=== PATIENT | male | born 2000 | race African-American/Black ===

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

== ENCOUNTER 2018-01-05 13:35 | Emergency (ER) | payer OTHER ==
[2018-01-05 15:11] LABS: KETONE, URINE AUTO RFX NEGATIVE (NEGATIVE); LEUKOCYTE ESTERASE UR AUTO RFX NEGATIVE (NEGATIVE); MUCUS, URINE RFX SMALL (NEGATIVE); NITRITE, URINE AUTO RFX NEGATIVE (NEGATIVE); RBC, URINE AUTO RFX 1 /HPF (0-3); SPECIFIC GRAVITY UR AUTO RFX 1.024 (1.002-1.035); SQUAM EPITHELIAL CELL UR AURFX 0 /HPF (0-6); WBC, URINE AUTO RFX 0 /HPF (0-3)
[2018-01-05] MEDS: NS 1,000 ML IV (15:29)
[2018-01-05] MEDS: MORPHINE 2 MG/ML 1ML SYRINGE (J2270) IV (15:29)
[2018-01-05] MEDS: ONDANSETRON 4MG/2ML VIAL (J2405) IV (15:29)
[2018-01-05 15:42] LABS: BASO % 0.5 % (0.0-1.0); EOS # 0.1 10^3/uL (0.0-0.50); EOS % 0.8 % (0.0-3.0); HEMATOCRIT 39.4 % (42.0-52.0); HEMOGLOBIN 13.7 g/dl (13.5-17.5); IMMATURE GRANULOCYTE % 0.1 % (0-3.0); LYMPH # 2.2 10^3/uL (1.5-6.5); LYMPH % 27.6 % (24.0-44.0); MEAN CORPUSCULAR HEMOGLOBIN 33.5 pg (27.0-33.0); MEAN CORPUSCULAR HGB CONC 34.8 g/dl (32.0-36.5); MEAN CORPUSCULAR VOLUME 96.3 fl (80.0-96.0); MONO # 0.6 10^3/uL (0.0-0.8); PLATELET COUNT, AUTOMATED 265 10^3/uL (150-450); RED BLOOD COUNT 4.09 10^6/uL (4.30-6.10); RED CELL DISTRIBUTION WIDTH 12.5 % (11.5-14.5); WHITE BLOOD COUNT 7.8 10^3/uL (4.0-10.0)
[2018-01-05 15:52] LABS: INR 1.12; PROTHROMBIN TIME 14.6 SECONDS (12.1-14.4)
[2018-01-05 16:00] LABS: ANION GAP 6 MEQ/L (8-16); BLOOD UREA NITROGEN 18 MG/DL (7-18); CALCIUM LEVEL 8.8 MG/DL (8.5-10.1); CARBON DIOXIDE LEVEL 28 MEQ/L (21-32); CHLORIDE LEVEL 108 MEQ/L (98-107); GLUCOSE, FASTING 87 MG/DL (70-100); POTASSIUM SERUM 3.9 MEQ/L (3.5-5.1); SODIUM LEVEL 142 MEQ/L (136-145)
[2018-01-05] MEDS: ACETAMINOPHEN 325 MG TAB PO (17:04)
[2018-01-05] MEDS: traMADol 50 MG TAB PO (17:04)
== END 2018-01-05 17:05 | disposition home or self-care (01) ==
LOC: M ED 13:35
DX: R10.9 Unspecified abdominal pain (principal)
CPT/HCPCS: J2405

== ENCOUNTER 2018-05-27 23:01 | Emergency (ER) | payer OTHER ==
[2018-05-27 23:25] LABS: KETONE, URINE AUTO RFX NEGATIVE (NEGATIVE); LEUKOCYTE ESTERASE UR AUTO RFX NEGATIVE (NEGATIVE); MUCUS, URINE RFX SMALL (NEGATIVE); NITRITE, URINE AUTO RFX NEGATIVE (NEGATIVE); RBC, URINE AUTO RFX 1 /HPF (0-3); SPECIFIC GRAVITY UR AUTO RFX 1.029 (1.002-1.035); SQUAM EPITHELIAL CELL UR AURFX 0 /HPF (0-6); WBC, URINE AUTO RFX 0 /HPF (0-3)
== END 2018-05-27 23:26 | disposition left against medical advice (07) ==
LOC: M ED 23:01
DX: Z53.29 Procedure and treatment not carried out because of patient's decision for other reasons (principal)

== ENCOUNTER 2018-07-10 12:14 | Emergency (ER) | payer OTHER ==
[~2018-07-10] VITALS: Ht 182.9 cm; Wt 77.3 kg
[~2018-07-10 12:14] MED LIST changes: +ACET-683 PO; -ONDANSETRON 4 MG ORAL DISINTEGRATING TAB (Q0162 PER 1MG) As Ordered; +OXYC1TAB23 PO; +PROM50TA4 PO; +ZOFR4TAB16 PO
[2018-07-10] MEDS ORDERED: ONDANSETRON 4MG/2ML VIAL (J2405) IV ONE (12:30)
[2018-07-10] MEDS: MORPHINE 4 MG/ML 1ML VIAL/SYRINGE (J2270) IV PRN ×2 (12:44→13:45)
[2018-07-10 12:53] LABS: BASO % 0.2 % (0.0-1.0); EOS % 0.1 % (0.0-3.0); HEMATOCRIT 39.2 % (42.0-52.0); HEMOGLOBIN 13.9 g/dl (13.5-17.5); LYMPH # 1.1 10^3/uL (1.5-6.5); LYMPH % 13.5 % (24.0-44.0); MEAN CORPUSCULAR HEMOGLOBIN 32.7 pg (27.0-33.0); MEAN CORPUSCULAR HGB CONC 35.5 g/dl (32.0-36.5); MEAN CORPUSCULAR VOLUME 92.2 fl (80.0-96.0); MONO # 0.5 10^3/uL (0.0-0.8); MONO % 5.5 % (0.0-5.0); NEUTROPHILS # 6.8 10^3/uL (1.8-7.7); NEUTROPHILS % 80.5 % (36.0-66.0); PLATELET COUNT, AUTOMATED 277 10^3/uL (150-450); RED BLOOD COUNT 4.25 10^6/uL (4.30-6.10); WHITE BLOOD COUNT 8.4 10^3/uL (4.0-10.0)
[2018-07-10 13:02] LABS: INR 1.16; PARTIAL THROMBOPLASTIN TIME 31.6 SECONDS (25.4-37.6)
[2018-07-10 13:15] LABS: ALBUMIN 4.5 GM/DL (3.2-5.2); ALT/SGPT 31 U/L (12-78); BILIRUBIN,DIRECT 0.2 MG/DL (0.0-0.2); BILIRUBIN,TOTAL 0.5 MG/DL (0.2-1.0); BLOOD UREA NITROGEN 20 MG/DL (7-18); CALCIUM LEVEL 9.2 MG/DL (8.5-10.1); CARBON DIOXIDE LEVEL 24 MEQ/L (21-32); CHLORIDE LEVEL 107 MEQ/L (98-107); CREATININE FOR GFR 1.09 MG/DL (0.70-1.30); GLUCOSE, FASTING 82 MG/DL (70-100); POTASSIUM SERUM 4.4 MEQ/L (3.5-5.1); SODIUM LEVEL 141 MEQ/L (136-145); TOTAL PROTEIN 7.7 GM/DL (6.4-8.2)
[2018-07-10] MEDS ORDERED: ISOVUE-370 76% 100ML VIAL (Q9967) As Ordered ONE (13:27)
[2018-07-10] MEDS ORDERED: METOCLOPRAMIDE INJ 10MG/2ML VIAL (J2765) IV ONE (13:30)
[2018-07-10] MEDS ORDERED: NS 1,000 ML IV ONE (13:30)
--- NOTE | 2018-07-10 14:34 | REP ---
CT abdomen and pelvis with IV but without oral contrast: History: Left flank pain. History of left renal laceration in October 2017. Comparison CT study November 19, 2017. CT contrast dose: 100 mL of intravenous Isovue [address] findings: Digital preliminary finisher denture radiograph is unremarkable. The lung bases are clear on axial CT images. The liver and the spleen are normal in size, homogeneous in texture. No adrenal lesion is seen. The gallbladder is unremarkable. The pancreas shows no abnormality. There is no evidence of retroperitoneal hematoma or mass lesion. The kidneys enhance symmetrically and appear morphologically intact. No hydronephrosis is seen. The previously noted left renal laceration and perinephric hematoma have resolved. Small and large intestinal bowel loops are normal in the abdomen and pelvis. A normal appendix is seen in the right pelvis. No abdominal wall defect is seen. The urinary bladder is empty. Impression: Negative CT study of the abdomen and pelvis with IV contrast. No acute abdominal or retroperitoneal abnormality. Left kidney is morphologically unremarkable. Electronically Signed by Phuc Choi MD 07/10/2018 05:46 P
[2018-07-10 14:44] LABS: APPEARANCE, URINE CLEAR (CLEAR); BACTERIA, URINE AUTO NEGATIVE (NEGATIVE); BILIRUBIN, URINE AUTO NEGATIVE (NEGATIVE); BLOOD, URINE BLOOD NEGATIVE (NEGATIVE); COLOR, URINE STRAW (YELLOW); GLUCOSE, URINE (UA) AUTO NEGATIVE (NEGATIVE); KETONE, URINE AUTO NEGATIVE (NEGATIVE); LEUKOCYTE ESTERASE, URINE AUTO NEGATIVE (NEGATIVE); NITRITE, URINE AUTO NEGATIVE (NEGATIVE); PROTEIN, URINE AUTO NEGATIVE (NEGATIVE); RBC, URINE AUTO 1 /HPF (0-3); SQUAMOUS EPITHELIAL CELL UR AU 0 /HPF (0-6); UROBILINOGEN, URINE AUTO 0.2 mg/dL (0.0-2.0); WBC, URINE AUTO 0 /HPF (0-3)
[2018-07-10 14:45] LABS: SPECIFIC GRAVITY URINE AUTO >1.060 (1.002-1.035)
[2018-07-10 14:58] VITALS: BP 123/59
[2018-07-10] MEDS ORDERED: ZOFR4TAB14 PO (14:59)
[2018-07-10] MEDS ORDERED: NAPR-50 PO (14:59)
== END 2018-07-10 15:12 | disposition home or self-care (01) ==
LOC: M ED 12:14
DX: A08.4 Viral intestinal infection, unspecified (principal); V49.49XA Driver injured in collision with other motor vehicles in traffic accident, initial encounter; Y92.410 Unspecified street and highway as the place of occurrence of the external cause; N28.9 Disorder of kidney and ureter, unspecified
CPT/HCPCS: 74177; 80048; 80076; 81001; 85025; 85610; 85730; 86850; 86900; 86901; 96361; 96374; 96375; 96376; 99284; J2270; J2405; J2765; Q9967

== ENCOUNTER → 2018-10-18 | Outpatient (CLI) | payer OTHER ==
[~2018-10-18] MED LIST changes: +NAPR-837 PO; +ZOFR4TAB14 PO
--- NOTE | 2018-10-31 00:46 | ECWPNPC ---
PATIENT NAME: MACARIO DANIELSON : 2000 GENDER: MALE VISIT DATE: 10/18/2018 DISCHARGE DATE: 10/18/18 1324 VISIT LOCKED DATE TIME: PHYSICIAN: BOUCHRA GAYTAN MD RESOURCE: BOUCHRA GAYTAN MD REASON FOR APPOINTMENT 1. ABDOMINAL PAIN HISTORY OF PRESENT ILLNESS NEW PATIENT CONSULT: WHEN DID YOUR PAIN FIRST START? . BRIEFLY DESCRIBE HOW YOUR PAIN STARTED? . HOW DOES YOUR PAIN CHANGE WITH TIME? . DOES YOUR PAIN AWAKEN YOU FROM SLEEP? . HOW MANY HOURS OF SLEEP DO YOU NORMALLY GET? . ANY DIAGNOSTIC TESTING? . FACILITY WHERE TESTS WERE DONE? ____. PAIN TREATMENT TREATMENT YES CANCER HAVE YOU EVER HAD ANY TYPE OF CANCER?NO NO. 18 YEAR OLD MALE PATIENT WITH A HISTORY OF CHRONIC LEFT FLANK PAIN. THE PATIENT DESCRIBES THE PAIN BURNING, SHOOTING, SHARP, AND CONTINUOUS WITH A PAIN SCORE OF 4-6/10 DEPENDING ON PHYSICAL ACTIVITY. THE PATIENT STATES ON NOV 19 2017 HE WAS PLAYING FOOTBALL WHEN HE RECEIVED A TRAUMATIC BLOW TO THE LEFT ABDOMEN AREA BY ANOTHER PLAYER'S ELBOW. THE PATIENT RECALLS FALLING TO THE GROUND FROM SEVERE PAIN FROM THE IMPACT. THE PATIENT SAYS HE WENT TO THE DOCTOR DUE TO THE PAIN AND TRAUMA TO THE LEFT KIDNEY AND HEMATURIA WAS FOUND. THE PATIENT SAYS HE RECEIVES SHARP PAIN ON THE LEFT SIDE THROUGHOUT THE DAY LASTING UPWARDS TO A MINUTE AT TIMES. THE PAIN IS AFFECTING HIS ABILITY TO PERFORM DAILY ACTIVITIES SUCH WORKING AND EXERCISE, AND ALSO AFFECTING HIS SLEEP WELL. THE PATIENT SAYS HE HAS TRIED SEVERAL MEDICATIONS, INCLUDING PERCOCET, HOWEVER HE WAS EXPERIENCING SIDE EFFECTS SUCH DIZZINESS AND SLEEPINESS SO HE DISCONTINUED USAGE. THE PATIENT ALSO TRIED CYMBALTA A PAIN RELIEVER, HOWEVER IT CAUSED UPSET STOMACH. THE PATIENT WAS USING IBUPROFEN OFTEN FOR PAIN RELIEF, BUT WAS ADVISED TO BE CAREFUL AND REDUCE THE AMOUNT TO AVOID GASTRITIS. THE PATIENT SAYS HE IS CURRENTLY NOT USING ANY PAIN MEDICATION. PATIENT DENIES UNEXPLAINABLE WEIGHT LOSS, FEVER, CHILLS, NEW CHANGES ON HIS URINARY OR BOWEL CONTROL. PAIN SCREENING: PATIENT HAS A COMPLAINT OF ACUTE OR CHRONIC PAIN :YES FALL RISK SCREENING: SCREENING : NO FALLS IN THE PAST YEAR. VALENCIA INVENTORY: QUESTIONNAIRE ASSESSEDTBD SCORE VALUE CALCULATED TBD CURRENT MEDICATIONS NOT-TAKING CYMBALTA 20 MG CAPSULE DELAYED RELEASE PARTICLES 1 CAPSULE ORALLY TWICE A DAY, NOTES: NOT TAKING MEDICATION LIST REVIEWED AND RECONCILED WITH THE PATIENT PAST MEDICAL HISTORY LACERATION OF LEFT KIDNEY ANXIETY ALLERGIES N.K.D.A. SURGICAL HISTORY LACERATION TO HEAD -BONDED WITH GLUE 2006 FAMILY HISTORY FATHER: ALIVE, DIAGNOSED WITH HYPERTENSION, HEART DISEASE MOTHER: ALIVE SIBLINGS: ALIVE SOCIAL HISTORY GENERAL: TOBACCO USE ARE YOU A:NONSMOKER LUNG CANCER SCREENING SMOKING STATUS:NON SMOKER ALCOHOL SCREENING DID YOU HAVE A DRINK CONTAINING ALCOHOL IN THE PAST YEAR?NO POINTS0 INTERPRETATIONNEGATIVE RECREATIONAL DRUG USE DRUG USE?NO CAFFEINE CAFFEINE USE?YES ON OCCASSION LANGUAGE LANGUAGES SPOKEN:SOMALI EDUCATION LEVEL OF EDUCATION:HIGH SCHOOL DIET: REGULAR. PAIN CLINIC PFS, CLERGY, PUBLIC HEALTH REFERRALS CLERGY REFERRAL NEEDED?NO WAS THE PROVIDER NOTIFIED OF ANY PERTINENT INFO?NO PFS REFERRAL NEEDED?NO PUBLIC HEALTH REFERRAL NEEDED?NO HOUSING: LIVES IN [facility]. HOSPITALIZATION/MAJOR DIAGNOSTIC PROCEDURE DENIES PAST HOSPITALIZATION REVIEW OF SYSTEMS REVIEWED BY: PROVIDER: BOUCHRA GAYTAN MD . CONSTITUTIONAL: ANY CHANGE IN YOUR MEDICAL CONDITION? LEFT KIDNEY LACERATION . CHILLS NO . FEVER NO . INFECTION: DO YOU HAVE NEW INFECTIONS? NO . DO YOU HAVE HISTORY OF MRSA? NO . MUSCULOSKELETAL: ANY NEW PATTERNS OF PAIN OR NUMBNESS? RIGHT KNEE IS SWOLLEN AND HURTS . SYTEMIC LUPUS NO . GASTROENTEROLOGY: ANY NEW CHANGE IN BOWEL CONTROL? NO . BARRETTS ESOPHAGUS NO . CIRRHOSIS NO . HEPATITIS NO . LIVER FAILURE NO . ACID REFLUX NO . UNEXPLAINED WEIGHT LOSS NO . GENITOURINARY: ANY NEW CHANGE IN BLADDER CONTROL? NO . IS THERE A CHANCE YOU COULD BE ? NO . HEMATOLOGY/LYMPH: DO YOU TAKE ANY BLOOD THINNERS? (FOR EXAMPLE- COUMADIN, PLAVIX, AGGRENOX, PLATEL, PRADAXA, OR XARELTO) NO . WHEN WAS YOUR LAST DOSE? DATE: TIME: . LOW PLATELET COUNT NO . SICKLE CELL DISEASE NO . VON WILLIEBRANDS NO . FACTOR V LEIDEN NO . THALLASEMIA NO . ANEMIA NO . EASY BRUISING NO . NEUROLOGY: HAVE YOU FALLEN IN THE PAST 12 MONTHS? 2 WEEKS AGO WHILE IN SHOWER SHARP PAIN . ANY NEW EXTREMITY NUMBNESS OR WEAKNESS? NO . HEAD INJURY NO . DEMENTIA NO . CEREBRAL PALSY NO . MULTIPLE SCLEROSIS NO . DIZZINESS NO . HEADACHE NO . STROKES NO . VERTIGO NO . CARDIOLOGY: DO YOU HAVE A PACEMAKER OR DEFIBRILLATOR? NO . ANGINA NO . HEART ATTACK NO . HEART SURGERY NO . CONGESTIVE HEART FAILURE/FLUID OVERLOAD NO . CHEST PAIN NO . HIGH BLOOD PRESSURE NO . IRREGULAR HEART BEAT NO . RESPIRATORY: HAVE YOU BEEN SICK IN THE PAST WEEK? NO . FEVER NO . FLU LIKE SYMPTOMS? NO . CPAP NO . BYPAP NO . ASTHMA NO . EMPHYSEMA NO . CHRONIC LUNG DISEASES NO . SHORTNESS OF BREATH ON EXERTION NO . DO YOU USE ANY TYPE OF TOBACCO (SMOKE, SMOKELESS, CHEW)? NO . COUGH NO . SNORING NO . INTEGUMENTARY: DO YOU HAVE ANY RASHES OR OPEN SORES? NO . ALLERGIC/IMMUNO: ARE YOU ALLERGIC TO IV DYE? NO . ANY NEW ALLERGIES? NO . PSYCHIATRIC: DO YOU HAVE THOUGHTS OF HURTING YOURSELF OR SOMEONE ELSE? NO . ARE YOU ABUSED, NEGLECTED, OR IN AN UNSAFE ENVIRONMENT? NO . ENDOCRINOLOGY: ARE YOU DIABETIC? NO . THYROID DISORDER NO . OTHER: DO YOU NEED ANY PRESCRIPTIONS? NO . IF YES, PLEASE LIST: ____ . ANY NEW PROBLEMS WITH YOUR MEDICATIONS? NO . WHEN DID YOU LAST EAT? ____ . WHEN DID YOU LAST DRINK? ____ . WHAT DID YOU LAST DRINK? ____ . NAME OF PERSON DRIVING YOU HOME? ____ . DO YOU HAVE ANY OTHER QUESTIONS OR CONCERNS NO . VITAL SIGNS WT 172.6 LBS, HT 70 IN, BMI 24.76 INDEX, BP 117/67 MM HG, HR 61 /MIN, RR 16 /MIN, TEMP 97.5 F, OXYGEN SAT % 99%, SAFE IN ENV? (Y/N) Y, NA INITIALS FL 11:03, REVIEWED BY: SOFIYA. EXAMINATION GENERAL EXAMINATION: PATIENT IS ALERT O X 3 AND COOPERATIVE. , LUNGS CLEAR, TO AUSCULTATION. HEART: NO MURMURS OR GALLOPS; FACIAL CRANIAL NERVES ARE GROSSLY NORMAL. GOOD SYMMETRY OF FACIAL MUSCLE MOVEMENT. NORMAL VISUAL CORMIER. TENDERNESS IN THE LEFT ABDOMEN. TENDERNESS WITH PRESSURE IN THE LEFT FLANK. CT IMAGING OF THE PELVIS DONE ON 07/10/[address] IMAGING OF ABDOMEN PELVIS DONE ON 11/19/2017 SHOWS LACERATION IN THE UPPER POLE OF THE LEFT KIDNEY WITH A LEFT PERINEPHRIC HEMATOMA. ASSESSMENTS LEFT LOWER QUADRANT PAIN - R10.32 (PRIMARY) TRAUMATIC PERINEPHRIC HEMATOMA OF LEFT KIDNEY, INITIAL ENCOUNTER - S37.092A TREATMENT LEFT LOWER QUADRANT PAIN CLINICAL NOTES: I WOULD LIKE TO REFER THE PATIENT TO BE ADVISED BY AN UROLOGIST AND CENTER RECEPTIONIST FOR PAIN RELIEF SUGGESTIONS DUE TO PAIN ASSOCIATED FROM THE TRAUMA. I WILL START THE PATIENT ON GABAPENTIN TO BE USED AT NIGHT FOR NEUROPATHIC PAIN. I WOULD LIKE THE PATIENT TO CONSIDER A SPINAL DCS TRIAL POSSIBLY IN THE FUTURE. THE PATIENT WILL FOLLOW UP IN 3 WEEKS. INSTRUCTIONS WERE GIVEN, QUESTIONS WERE ANSWERED, PATIENT REPORTS UNDERSTANDING AND AGREES WITH THE PLAN. I, PAULIE COLBY, DOCUMENTED THE ABOVE INFORMATION ACTING A SCRIBE FOR DR. GAYTAN. I HAVE REVIEWED THE ABOVE DOCUMENT, WRITTEN BY PAULIE COLBY SCRIBMayo AND I VERIFY THAT IT IS ACCURATE. DEAR DR. BRAVO DOUGLASS: THANK YOU FOR YOUR KIND REFERRAL OF MACARIO DANIELSON. IF YOU WANT TO DISCUSS HIS CASE WITH ME PLEASE CALL ME AT THE PAIN CENTER AT [phone]. SINCERELY, BOUCHRA GAYTAN MD PAIN MEDICINE . OTHERS START GABAPENTIN CAPSULE, 100 MG, 1 CAPSULE, ORALLY FOR PAIN, THREE TIMES A DAY, 30 DAY(S), 90, REFILLS 1 PROCEDURE CODES FA211 ESTABILISHED PATIENT [facility] CHARGE G8427 CURRENT MEDS W/DOSAGES DOCUMENTED G8730 PAIN ASSESS POS TOOL F/U PLAN DOC DISPOSITION & COMMUNICATION FOLLOW UP 3 WEEKS ELECTRONICALLY SIGNED BY BOUCHRA GAYTAN MD, MD ON 10/30/2018 AT 12:25 PM EDT DISCLAIMER : THIS IS A VISIT SUMMARY EXTRACTED FROM THE [employer] CHART. IT IS NOT A COPY OF THE [employer] PROGRESS NOTE. MTDD
== END ==
LOC: M PAIN 10:30
PROVIDERS: ATTEND Anesthesiology
DX: R10.32 Left lower quadrant pain (principal); G89.29 Other chronic pain; S37.092A Other injury of left kidney, initial encounter; Z86.59 Personal history of other mental and behavioral disorders; Z79.899 Other long term (current) drug therapy; Y93.61 Activity, american tackle football; Y92.9 Unspecified place or not applicable

== ENCOUNTER 2018-10-25 16:34 | Emergency (ER) | payer OTHER ==
[~2018-10-25] VITALS: Ht 182.9 cm; Wt 81.8 kg
[2018-10-25 16:35] VITALS: BP 135/74
[2018-10-25] MEDS ORDERED: BICILLIN L-A 2,400,000 UNIT/4 ML SYRINGE (J0561-24)PENICILLIN G BENZATINE IM ONE (18:45)
[2018-10-25 19:46] LABS: HIV 1&2 SCREEN CENTAUR NEGATIVE (NEGATIVE)
[2018-10-25 19:49] LABS: CHLAMYDIA DNA AMPLIFICATION NEGATIVE (NEGATIVE); GC DNA AMPLIFICATION NEGATIVE (NEGATIVE)
[2018-10-28 10:37] LABS: HEPATITIS B SURFACE ANTIBODY POSITIVE (POSITIVE); HEPATITIS B SURFACE ANTIGEN NEGATIVE (NEGATIVE)
== END 2018-10-25 19:54 | disposition home or self-care (01) ==
LOC: M ED 16:34
DX: Z20.2 Contact with and (suspected) exposure to infections with a predominantly sexual mode of transmission (principal); A53.9 Syphilis, unspecified
CPT/HCPCS: 86706; 86780; 86803; 87340; 87389; 87491; 87591; 96372; 99283; J0561

== ENCOUNTER → 2018-11-08 | Outpatient (CLI) | payer OTHER ==
--- NOTE | 2018-11-23 23:30 | ECWPNPC ---
PATIENT NAME: MACARIO DANIELSON : 2000 GENDER: MALE VISIT DATE: 11/08/2018 DISCHARGE DATE: 11/08/18 1346 VISIT LOCKED DATE TIME: PHYSICIAN: BOUCHRA GAYTAN MD RESOURCE: BOUCHRA GAYTAN MD REASON FOR APPOINTMENT 1. [address] Rainey/ ABDOMINAL PAIN HISTORY OF PRESENT ILLNESS HISTORY OF PRESENT ILLNESS: PAIN THE PATIENT DESCRIBES THE PAIN... 18 YEAR OLD MALE PATIENT WITH A HISTORY OF CHRONIC LEFT FLANK PAIN. THE PATIENT DESCRIBES THE PAIN STABBING, SHARP, SORE, AND CONTINUOUS WITH A PAIN SCORE OF 6-10/10 DEPENDING ON PHYSICAL ACTIVITY. THE PATIENT SAYS HE EXPERIENCED A TRAUMA OVER HIS LEFT ABDOMEN AREA WHILE PLAYING SPORTS MORE THAN A YEAR AGO AND EXPERIENCED HEMATURIA AFTERWARD. THE PATIENT STATES SINCE THE ACCIDENT, HE HAS BEEN EXPERIENCING SEVERE, SHARP PAIN ON HIS LEFT SIDE THROUGHOUT THE DAY AND OFTEN WAKES AT NIGHT FROM THE PAIN. 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 THE PATIENT STATES HE WAS STARTED ON GABAPENTIN BY HIS PRIMARY CARE PHYSICIAN BUT THE MEDICATION HAS YET TO PROVIDE ANY PAIN RELIEF. PATIENT DENIES UNEXPLAINABLE WEIGHT LOSS, FEVER, CHILLS, NEW CHANGES ON HIS URINARY OR BOWEL CONTROL. FALL RISK SCREENING: SCREENING :NO FALLS REPORTED IN THE LAST YEAR CURRENT MEDICATIONS TAKING GABAPENTIN 100 MG CAPSULE 3 CAPSULE ORALLY BEFORE BEDTIME DISCONTINUED CYMBALTA 20 MG CAPSULE DELAYED RELEASE PARTICLES 1 CAPSULE ORALLY TWICE A DAY, NOTES: NOT TAKING MEDICATION LIST REVIEWED AND RECONCILED WITH THE PATIENT PAST MEDICAL HISTORY LACERATION OF LEFT KIDNEY ANXIETY ALLERGIES LATEX: RASH - ALLERGY SURGICAL HISTORY LACERATION TO HEAD -BONDED WITH GLUE 2006 FAMILY HISTORY FATHER: ALIVE, DIAGNOSED WITH HYPERTENSION, HEART DISEASE MOTHER: ALIVE SIBLINGS: ALIVE 2 SISTER(S) - HEALTHY. SOCIAL HISTORY GENERAL: TOBACCO USE ARE YOU A:NONSMOKER OTHERS AT HOME: NONE. HOUSING: LIVES IN [facility]. EDUCATION LEVEL OF EDUCATION:HIGH SCHOOL DIET: REGULAR. LANGUAGE LANGUAGES SPOKEN:KOREAN RECREATIONAL DRUG USE DRUG USE?NO EXERCISE: DAILY. LUNG CANCER SCREENING SMOKING STATUS:NON SMOKER PAIN CLINIC PFS, CLERGY, PUBLIC HEALTH REFERRALS PFS REFERRAL NEEDED?NO CLERGY REFERRAL NEEDED?NO PUBLIC HEALTH REFERRAL NEEDED?NO WAS THE PROVIDER NOTIFIED OF ANY PERTINENT INFO?NO HAS THE PATIENT BEEN EDUCATED REGARDING HIS/HER PLAN OF CARE?YES HAS THE PATIENT BEEN EDUCATED REGARDING PAIN, THE RISK FOR PAIN, THE IMPORTANCE OF EFFECTIVE PAIN MANAGEMENT, AND THE PAIN ASSESSMENT PROCESS?YES LATEX QUESTIONNAIRE LATEX ALLERGY : HAVE YOU EVER DEVELOPED ANY TYPE OF REACTION AFTER HANDLING LATEX PRODUCTS SUCH RUBBER GLOVES, CONDOMS, DIAPHRAGMS, BALLOONS, SOCKS, OR UNDERWEAR?YES - PLEASE INDICATE :RUBBER GLOVES, UNDERWEAR LATEX ALLERGY : HAVE YOU EVER DEVELOPED ANY TYPE OF REACTION DURING OR AFTER DENTAL APPOINTMENT, VAGINAL/RECTAL EXAMINATION, SURGICAL PROCEDURE, OR ANY OTHER EXPOSURE?NO LATEX RISK : HAVE YOU EVER HAD ANY DIFFICULTY BREATHING OR HIVES AFTER EATING OR HANDLING ANY FRUITS, OR VEGETABLES; SUCH KIWI, BANANAS, STONE FRUITS, OR CHESTNUTSNO LATEX RISK : DO YOU HAVE A PREVIOUS PERSONAL HISTORY OF MORE THAN NINE SURGERIES, SPINA BIFIDA, OR REPEATED CATHERTIZATIONS? NO LATEX RISK : ARE YOU FREQUENTLY EXPOSED TO LATEX PRODUCTS IN YOUR OCCUPATION?YES DATE ASKED : 11/08/2018 CAFFEINE CAFFEINE USE?YES ON OCCASSION ADVANCE DIRECTIVE ADVANCE DIRECTIVE DISCUSSED WITH PATIENT:YES 11/08/18 PT. DECLINES INFORMATIONS MARITAL STATUS: SINGLE. ALCOHOL SCREENING DID YOU HAVE A DRINK CONTAINING ALCOHOL IN THE PAST YEAR?NO POINTS0 INTERPRETATIONNEGATIVE HOSPITALIZATION/MAJOR DIAGNOSTIC PROCEDURE NO HOSPITALIZATION HISTORY. REVIEW OF SYSTEMS REVIEWED BY: PROVIDER: BOUCHRA GAYTAN MD . CONSTITUTIONAL: ANY CHANGE IN YOUR MEDICAL CONDITION? NO . CHILLS NO . FEVER NO . INFECTION: DO YOU HAVE NEW INFECTIONS? NO . DO YOU HAVE HISTORY OF MRSA? NO . MUSCULOSKELETAL: ANY NEW PATTERNS OF PAIN OR NUMBNESS? NO . GASTROENTEROLOGY: ANY NEW CHANGE IN BOWEL CONTROL? NO . GENITOURINARY: ANY NEW CHANGE IN BLADDER CONTROL? NO . IS THERE A CHANCE YOU COULD BE ? NO . HEMATOLOGY/LYMPH: DO YOU TAKE ANY BLOOD THINNERS? (FOR EXAMPLE- COUMADIN, PLAVIX, AGGRENOX, PLATEL, PRADAXA, OR XARELTO) NO . WHEN WAS YOUR LAST DOSE? DATE: TIME: . NEUROLOGY: HAVE YOU FALLEN IN THE PAST 12 MONTHS? YES . ANY NEW EXTREMITY NUMBNESS OR WEAKNESS? NO . CARDIOLOGY: DO YOU HAVE A PACEMAKER OR DEFIBRILLATOR? NO . RESPIRATORY: HAVE YOU BEEN SICK IN THE PAST WEEK? NO . FEVER NO . FLU LIKE SYMPTOMS? NO . COUGH YES, SORE THROAT . INTEGUMENTARY: DO YOU HAVE ANY RASHES OR OPEN SORES? NO . ALLERGIC/IMMUNO: ARE YOU ALLERGIC TO IV DYE? NO . ANY NEW ALLERGIES? NO . PSYCHIATRIC: DO YOU HAVE THOUGHTS OF HURTING YOURSELF OR SOMEONE ELSE? NO . ARE YOU ABUSED, NEGLECTED, OR IN AN UNSAFE ENVIRONMENT? NO . ENDOCRINOLOGY: ARE YOU DIABETIC? NO . OTHER: DO YOU NEED ANY PRESCRIPTIONS? NO . IF YES, PLEASE LIST: ____ . ANY NEW PROBLEMS WITH YOUR MEDICATIONS? NO . WHEN DID YOU LAST EAT? ____ . WHEN DID YOU LAST DRINK? ____ . WHAT DID YOU LAST DRINK? ____ . NAME OF PERSON DRIVING YOU HOME? ____ . DO YOU HAVE ANY OTHER QUESTIONS OR CONCERNS NO . VITAL SIGNS WT 172 LBS, HT 70 IN, BMI 24.68 INDEX, BP 126/58 MM HG, HR 84 /MIN, RR 16 /MIN, TEMP 98.3 F, OXYGEN SAT % 98, SAFE IN ENV? (Y/N) YES, REVIEWED BY: EM. EXAMINATION GENERAL EXAMINATION: PATIENT IS ALERT O X 3 AND COOPERATIVE. TENDERNESS IN THE LEFT FLANK AREA. PATIENT IS EXPERIENCING PAIN DURING THE APPOINTMENT. ASSESSMENTS LEFT FLANK PAIN - R10.9 (PRIMARY) TREATMENT LEFT FLANK PAIN CLINICAL NOTES: WE DISCUSSED SEVERAL ISSUES WITH MR. DANIELSON' PAIN MANAGEMENT CASE. I WILL INCREASE THE PATIENT'S GABAPENTIN TO 300 MG DAILY AND ADVISED THE PATIENT TO SLOWLY INCREASE THE MEDICATION TO AVOID ADVERSE SIDE EFFECTS. THE PATIENT WILL ALSO USE TRAMADOL 1/2 TABLET PER DAY FOR A WEEK AND THEN REQUEST A REFILL FROM [facility]. I SUGGESTED FOR THE PATIENT TO TRY TRIGGER POINT INJECTIONS IN THE LEFT ABDOMEN AND LEFT LOW BACK DUE TO THE TENDERNESS IN THE LEFT FLANK AREA. I ALSO MENTIONED HE MAY BE A CANDIDATE FOR A DCS TRIAL. HOWEVER, THE PATIENT SAYS HE WOULD LIKE TO TRY THE INCREASED MEDICATION FIRST BEFORE TRYING ANY INTERVENTIONS. I HAD A LONG DISCUSSION ABOUT THE RISKS ASSOCIATED WITH THE USE OF OPIOIDS INCLUDING THE POSSIBLE DEVELOPMENT OF ADDICTION OR TOLERANCE AND THE PATIENT VERBALIZED UNDERSTANDING. THE PATIENT WILL FOLLOW UP IN 1 MONTH. INSTRUCTIONS WERE GIVEN, QUESTIONS WERE ANSWERED, PATIENT REPORTS UNDERSTANDING AND AGREES WITH THE PLAN. I, PAULIE COLBY, DOCUMENTED THE ABOVE INFORMATION ACTING A SCRIBE FOR DR. GAYTAN. I HAVE REVIEWED THE ABOVE DOCUMENT, WRITTEN BY PAULIE REYES AND I VERIFY THAT IT IS ACCURATE. . OTHERS REFILL GABAPENTIN CAPSULE, 300 MG, 1 CAP, ORALLY, THREE TIMES DAILY, 30 DAYS, 90, REFILLS 1 START TRAMADOL HCL TABLET, 50 MG, 1 TABLET NEEDED, ORALLY FOR PAIN, ONCE A DAY MDD1, 7 DAYS, 7, REFILLS 0 NOTES: PT GIVEN EDUCATION TEACHING FOR TRAMADOL AND DISCUSSED SIDE EFFECTS WITH PT.PT EDUCATED REGARDING INCREASING GABAPENTIN DOSE TO 3 TIMES PER DAY PER MD GAYTAN ORDER. PROCEDURE CODES G8427 CURRENT MEDS W/DOSAGES DOCUMENTED G8730 PAIN ASSESS POS TOOL F/U PLAN DOC FA211 ESTABILISHED PATIENT [facility] CHARGE DISPOSITION & COMMUNICATION FOLLOW UP 4 WEEKS (REASON: MEDICATION) ELECTRONICALLY SIGNED BY BOUCHRA GAYTAN MD, MD ON 11/23/2018 AT 03:16 PM EDT DISCLAIMER : THIS IS A VISIT SUMMARY EXTRACTED FROM THE [employer] CHART. IT IS NOT A COPY OF THE [employer] PROGRESS NOTE. VALARIE
== END ==
LOC: M PAIN 12:15
PROVIDERS: ATTEND Anesthesiology
DX: R10.9 Unspecified abdominal pain (principal); G89.29 Other chronic pain; F41.9 Anxiety disorder, unspecified; Z79.899 Other long term (current) drug therapy; Z91.040 Latex allergy status

== ENCOUNTER 2019-01-16 06:18 | Emergency (ER) | payer OTHER ==
[~2019-01-16] VITALS: Ht 182.9 cm; Wt 79.5 kg
[2019-01-16 06:19] VITALS: BP 128/65
[2019-01-16] MEDS ORDERED: GABA-843 PO (06:21)
[2019-01-16] MEDS ORDERED: cefTRIAXone SOD 250 MG VIAL (J0696) IM ONE (07:15)
[2019-01-16] MEDS ORDERED: AZITHROMYCIN 250 MG TAB PO ONE (07:15)
[2019-01-16] MEDS ORDERED: LIDOCAINE 1% SDV 5 ML VIAL DILUENT ONE (07:15)
[2019-01-16 09:06] LABS: CHLAMYDIA DNA AMPLIFICATION NEGATIVE (NEGATIVE); GC DNA AMPLIFICATION NEGATIVE (NEGATIVE)
[2019-01-17 10:03] LABS: HEPATITIS B SURFACE ANTIBODY POSITIVE (POSITIVE); HEPATITIS B SURFACE ANTIGEN NEGATIVE (NEGATIVE); HEPATITIS C VIRUS ABY INDEX 0.1 INDEX (<0.8); HIV 1&2 SCREEN CENTAUR NEGATIVE (NEGATIVE)
== END 2019-01-16 08:15 | disposition home or self-care (01) ==
LOC: M ED 06:18
DX: Z20.2 Contact with and (suspected) exposure to infections with a predominantly sexual mode of transmission (principal)
CPT/HCPCS: 36415; 86706; 86780; 86803; 87340; 87389; 87661; 96372; 99283; J0696

== ENCOUNTER → 2019-01-20 | Outpatient (CLI) | payer OTHER ==
[~2019-01-20] MED LIST changes: +GABA-843 PO
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
== END ==
LOC: M PAIN 09:45
PROVIDERS: ATTEND Anesthesiology
DX: G89.29 Other chronic pain (principal); R10.32 Left lower quadrant pain; M54.5 Low back pain; M79.2 Neuralgia and neuritis, unspecified; S37.09 Other injury of kidney; F41.9 Anxiety disorder, unspecified; Z79.899 Other long term (current) drug therapy; Z91.040 Latex allergy status

== ENCOUNTER 2019-07-12 18:55 | Emergency (ER) | payer OTHER ==
[~2019-07-12] VITALS: Ht 182.9 cm; Wt 81.8 kg
[2019-07-12 18:55] VITALS: BP 119/64
[2019-07-12] MEDS ORDERED: ACET-683 PO (19:00)
--- NOTE | 2019-07-13 08:03 | REP ---
LEFT ANKLE, FOUR VIEWS: There is no evidence of an acute fracture, dislocation or intrinsic bone disease. IMPRESSION: No fracture or dislocation. Electronically Signed by Edy Hadley MD 07/13/2019 09:40 A
--- NOTE | 2019-07-13 08:03 | REP ---
LEFT FOOT, FOUR VIEWS: There is no evidence of an acute fracture, dislocation or intrinsic bone disease. IMPRESSION: No fracture or dislocation. Electronically Signed by Edy Hadley MD 07/13/2019 09:40 A
== END 2019-07-12 20:01 | disposition home or self-care (01) ==
LOC: M ED 18:55
DX: S93.402A Sprain of unspecified ligament of left ankle, initial encounter (principal); X50.1XXA Overexertion from prolonged static or awkward postures, initial encounter; Y93.02 Activity, running; Y92.89 Other specified places as the place of occurrence of the external cause; Z87.442 Personal history of urinary calculi

== ENCOUNTER → 2020-02-06 | Emergency (ER) | payer OTHER | END | disposition left against medical advice (07) | LOC: M ED 22:34 | DX: Z53.21 Procedure and treatment not carried out due to patient leaving prior to being seen by health care provider (principal) ==

== ENCOUNTER 2020-03-15 07:57 | Emergency (ER) | payer OTHER ==
[~2020-03-15] VITALS: Ht 182.9 cm; Wt 86.4 kg
[2020-03-15] MEDS ORDERED: KETOROLAC 30 MG/ML 1ML VIAL IV ONE (08:15)
[2020-03-15] MEDS: NS 1,000 ML IV SCH ×2 (08:30→08:32)
[2020-03-15 08:47] LABS: BASO % 0.6 % (0.0-1.0); EOS % 0.4 % (0.0-3.0); HEMATOCRIT 41.9 % (42.0-52.0); HEMOGLOBIN 14.1 g/dl (13.5-17.5); LYMPH # 1.2 10^3/uL (1.5-5.0); LYMPH % 17.1 % (24.0-44.0); MEAN CORPUSCULAR HEMOGLOBIN 33.8 pg (27.0-33.0); MEAN CORPUSCULAR HGB CONC 33.7 g/dl (32.0-36.5); MEAN CORPUSCULAR VOLUME 100.5 fl (80.0-96.0); MONO # 0.5 10^3/uL (0.0-0.8); MONO % 6.9 % (0.0-5.0); NEUTROPHILS # 5.1 10^3/uL (1.5-8.5); NEUTROPHILS % 74.7 % (36.0-66.0); PLATELET COUNT, AUTOMATED 278 10^3/uL (150-450); RED BLOOD COUNT 4.17 10^6/uL (4.30-6.10); WHITE BLOOD COUNT 6.8 10^3/uL (4.0-10.0)
--- NOTE | 2020-03-15 08:50 | REPVR ---
PROCEDURE INFORMATION: Exam: CT Abdomen And Pelvis Without Contrast Exam date and time: 03/15/2020 8:04 AM Age: 19 years old Clinical indication: Abdominal pain; Flank; Left; Additional info: Left flank pain TECHNIQUE: Imaging protocol: Computed tomography of the abdomen and pelvis without contrast. Radiation optimization: All CT scans at this facility use at least one of these dose optimization techniques: automated exposure control; mA and/or kV adjustment per patient size (includes targeted exams where dose is matched to clinical indication); or iterative reconstruction. COMPARISON: CT ABD/PEL W/IV CONTRAST ONLY 07/10/2018 1:25 PM FINDINGS: Liver: Normal. No mass. Gallbladder and bile ducts: Normal. No calcified stones. No ductal dilation. Pancreas: Normal. No ductal dilation. Spleen: Normal. No splenomegaly. Adrenals: Normal. No mass. Kidneys and ureters: No evidence of renal tract calculi or of obstructive uropathy. Stomach and bowel: Unremarkable. No obstruction. No mucosal thickening. Appendix: No evidence of appendicitis. Intraperitoneal space: No acute abnormality identified in the abdomen or pelvis. Vasculature: Unremarkable. No abdominal aortic aneurysm. Lymph nodes: Unremarkable. No enlarged lymph nodes. Bladder: Unremarkable as visualized. Reproductive: Unremarkable as visualized. Bones/joints: Unremarkable. No acute fracture. IMPRESSION: 1. No acute abnormality identified in the abdomen or pelvis. 2. No obvious cause for the patient's left flank pain identified. No evidence of renal tract calculi or of obstructive uropathy. Electronically signed by: Syed Da Silva On 03/15/2020 08:50:14 AM
[2020-03-15 09:07] LABS: BLOOD UREA NITROGEN 11 MG/DL (7-18); CALCIUM LEVEL 8.9 MG/DL (8.5-10.1); CARBON DIOXIDE LEVEL 27 MEQ/L (21-32); CHLORIDE LEVEL 107 MEQ/L (98-107); GLOMERULAR FILTRATION RATE > 60.0 (>60); GLUCOSE, FASTING 95 MG/DL (70-100); POTASSIUM SERUM 3.9 MEQ/L (3.5-5.1); SODIUM LEVEL 140 MEQ/L (136-145)
[2020-03-15 09:14] VITALS: BP 127/57
== END 2020-03-15 09:17 | disposition home or self-care (01) ==
LOC: EDBD 07:57 → M ED 07:57 → EDSEX 07:57 → M ED 09:17
DX: R10.9 Unspecified abdominal pain (principal); F17.200 Nicotine dependence, unspecified, uncomplicated
CPT/HCPCS: 74176; 80048; 81001; 85025; 96361; 96374; 99284; J1885

== ENCOUNTER → 2020-06-08 | Outpatient (CLI) | payer OTHER ==
--- NOTE | 2020-06-08 14:51 | REP ---
INDICATION: COUGH. COMPARISON: No comparison study. TECHNIQUE: Two views.. FINDINGS: The lungs are well inflated and free of infiltrate. The pleural angles are sharp. The heart size is normal. Pulmonary vasculature is not increased. No significant bony abnormality is seen. IMPRESSION: Negative chest x-ray. <Electronically signed by Ravi Choi > 06/08/20 [id number]
== END ==
LOC: M WUC 11:21
PROVIDERS: ATTEND Physician Assistant
DX: R05 Cough (principal)

== ENCOUNTER 2020-08-04 17:25 | Emergency (ER) | payer OTHER ==
[~2020-08-04] VITALS: Ht 182.9 cm; Wt 83.1 kg
[2020-08-04 17:25] VITALS: BP 130/76
[~2020-08-04 17:25] MED LIST changes: +GABA-282 PO; -GABA-843 PO
--- OUTSIDE RECORDS SUMMARY | 2020-08-04 17:35 | CCD ---
Author Author [facility] Organization [facility] Address Unknown Phone Unavailable Care Team Providers [facility] [place] Lifeguard Name Role Phone Giuliano DOUGLASS MD Unavailable Unavailable Giuliano DOUGLASS MD Unavailable Unavailable Giuliano DOUGLASS MD Unavailable Unavailable Giuliano DOUGLASS MD Unavailable Unavailable Giuliano DOUGLASS MD Unavailable Unavailable Giuliano DOUGLASS MD Unavailable Unavailable Giuliano DOUGLASS MD Unavailable Unavailable Giuliano DOUGLASS MD Unavailable Unavailable Giuliano DOUGLASS MD Unavailable Unavailable Giuliano DOUGLASS MD Unavailable Unavailable Giuliano DOUGLASS MD Unavailable Unavailable Giuliano DOUGLASS MD Unavailable Unavailable Giuliano DOUGLASS MD Unavailable Unavailable Giuliano DOUGLASS MD Unavailable Unavailable Giuliano DOUGLASS MD Unavailable Unavailable Giuliano DOUGLASS MD Unavailable Unavailable Giuliano DOUGLASS MD Unavailable Unavailable Giuliano DOUGLASS MD Unavailable Unavailable Giuliano DOUGLASS MD Unavailable Unavailable Giuliano DOUGLASS MD Unavailable Unavailable Giuliano DOUGLASS MD Unavailable Unavailable Giuliano DOUGLASS MD Unavailable Unavailable Giuliano DOUGLASS MD Unavailable Unavailable EVONNE, V BRAVO MD Unavailable Unavailable EVONNE, Giuliano BRAVO MD Unavailable Unavailable EVONNE, V BRAVO MD Unavailable Unavailable EVONNE, V BRAVO MD Unavailable Unavailable EVONNE, V BRAVO MD Unavailable Unavailable EVONNE, V BRAVO MD Unavailable Unavailable EVONNE, V BRAVO MD Unavailable Unavailable EVONNE, V BRAVO MD Unavailable Unavailable EVONNE, V BRAVO MD Unavailable Unavailable EVONNE, V BRAVO MD Unavailable Unavailable EVONNE, V BRAVO MD Unavailable Unavailable EVONNE, V BRAVO MD Unavailable Unavailable EVONNE, V BRAVO MD Unavailable Unavailable EVONNE, V BRAVO MD Unavailable Unavailable EVONNE, V BRAVO MD Unavailable Unavailable EVONNE, V BRAVO MD Unavailable Unavailable EVONNE, V BRAVO MD Unavailable Unavailable EVONNE, V BRAVO MD Unavailable Unavailable EVONNE, V BRAVO MD Unavailable Unavailable EVONNE, V BRAVO MD Unavailable Unavailable EVONNE, V BRAVO MD Unavailable Unavailable EVONNE, V BRAVO MD Unavailable Unavailable EVONNE, V BRAVO MD Unavailable Unavailable EVONNE, V BRAVO MD Unavailable Unavailable EVONNE, V BRAVO MD Unavailable Unavailable EVONNE, V BRAVO MD Unavailable Unavailable EVONNE, V BRAVO MD Unavailable Unavailable EVONNE, V BRAVO MD Unavailable Unavailable EVONNE, V BRAVO MD Unavailable Unavailable EVONNE, V BRAVO MD Unavailable Unavailable EVONNE, V BRAVO MD Unavailable Unavailable EVONNE, V BRAVO MD Unavailable Unavailable EVONNE, V BRAVO MD Unavailable Unavailable EVONNE, V BRAVO MD Unavailable Unavailable EVONNE, V BRAVO MD Unavailable Unavailable EVONNE, V BRAVO MD Unavailable Unavailable EVONNE, V BRAVO MD Unavailable Unavailable EVONNE, V BRAVO MD Unavailable Unavailable EVONNE, V BRAVO MD Unavailable Unavailable EVONNE, V BRAVO MD Unavailable Unavailable VanTammy lazar PA Unavailable Unavailable VanTammy lazar PA Unavailable Unavailable VanTammy lazar PA Unavailable Unavailable VanTammy lazar PA Unavailable Unavailable VanTammy lazar PA Unavailable Unavailable VanTammy lazar PA Unavailable Unavailable VanTammy PA Unavailable Unavailable VanTammy lazar PA Unavailable Unavailable VanTammy lazar PA Unavailable Tammy Collins Unavailable Unavailable Re-disclosure Warning The records that you are about to access may contain information from federally-assisted alcohol or drug abuse programs. If such information is present, then the following federally mandated warning applies: This information has been disclosed to you from records protected by federal confidentiality rules (42 CFR part 2). The federal rules prohibit you from making any further disclosure of this information unless further disclosure is expressly permitted by the written consent of the person to whom it pertains or as otherwise permitted by 42 CFR part 2. A general authorization for the release of medical or other information is NOT sufficient for this purpose. The Federal rules restrict any use of the information to criminally investigate or prosecute any alcohol or drug abuse patient.The records that you are about to access may contain highly sensitive health information, the redisclosure of which is protected by Article 27-F of the [facility] Public Health law. If you continue you may have access to information: Regarding HIV / AIDS; Provided by facilities licensed or operated by the [facility] Office of Mental Health; or Provided by the [facility] Office for People With Developmental Disabilities. If such information is present, then the following [facility] mandated warning applies: This information has been disclosed to you from confidential records which are protected by state law. State law prohibits you from making any further disclosure of this information without the specific written consent of the person to whom it pertains, or as otherwise permitted by law. Any unauthorized further disclosure in violation of state law may result in a fine or snf sentence or both. A general authorization for the release of medical or other information is NOT sufficient authorization for further disc losure. Allergies and Adverse Reactions Type Description Substance Reaction Status Data Source(s ) Drug Class NO KNOWN ALLERGIES NO KNOWN ALLERGIES [facility] Encounters Encounter Providers Location Date Indications Data Source(s ) Outpatient Attender: Porsha arellano 06/08/2020 09:45:00 AM EST [facility] ([facility]) Outpatient Attender: BRAVO DOUGLASS MD 03/31/2020 12:00:00 AM [facility] Medications Medication Brand Name Start Date Product Form Dose Route Admi nistrative Instructions Pharmacy Instructions Status Indications Reaction Description Data Source(s) Prednisone 20 MG Oral Tablet Prednisone 06/08/2020 12:00:00 AM EST active [facility] ([facility]) Insurance Providers Payer name Policy type / Coverage type Policy ID Covered libertarian ID Covered libertarian's relationship to kay Policy Kay Plan Information [facility] ACTIVE DUTY [id number] SP [id number] U [id number] Self [id number] 600 [facility] HUMAN [id number] SP [id number] [facility] ACTIVE DUTY [id number] SP [id number] ANSI-Not a Secondary Insurance [id number] ANSI-Not a Secondary Insurance [id number] ANSI-Not a Secondary Insurance [id number] ANSI-Not a Secondary Insurance [id number] [facility] ACTIVE DUTY [id number] SP [id number] ANSI-Not a Secondary Insurance [id number] [facility] [id number] O [id number] U [id number] Self [id number] U [id number] Self [id number] Results ID Date Data Source [id number] 06/08/2020 12:00:00 AM EST [facility] Name Value Range Interpretation Code Description Data Yudy rce(s) Supporting Document(s) SARS coronavirus 2 Ag [facility] This lab was ordered by [facility] and reported by [facility]. Procedure Social History Code Duration Value Status Description Data Source(s ) Smoking 06/08/2020 12:00:00 AM EST Patient has never smoked co mpleted Patient has never smoked [facility] ([facility]) Vital Signs ID Date Data Source UNK Name Value Range Interpretation Code Description Data Source(s) Body weight 190.00 [lb_av] 190.00 [lb_av] [facility] ([facility]) Body temperature 98.4 [degF] 98.4 [degF] [facility] ([facility]) Oxygen saturation in Arterial blood by Pulse oximetry 99 % 99 % [facility] ([facility]) Respiratory rate 18 /min 18 /min [facility] ( [facility]) Heart rate 72 /min 72 /min [facility] ([facility]) Diastolic blood pressure 84 mm[Hg] 84 mm[Hg] [facility] ([facility]) Systolic blood pressure 118 mm[Hg] 118 mm[Hg] M [facility] ([facility])
--- OUTSIDE RECORDS SUMMARY | 2020-08-04 17:35 | CCD | Continuity of Care Document ---
Author Author Sixto VILLANUEVA Organization Unknown Address [address] [place] [id number] Phone [phone] Care Team Providers Care Automatic Line Set Up Mechanic Name Role Phone Matias Carrasco MD AUTM Unavailable [employer] AUTM [phone] [employer] [employer] AUTM [phone] Problems Description No Information Available Social History Type Date Description Comments Sex Unknown ETOH Use Occasionally consumes alcohol Tobacco Use Start: Unknown The patient has never vaped Tobacco Use Start: Unknown Patient has never smoked Smoking Status Reviewed: 06/08/20 Patient has never smoked Allergies, Adverse Reactions, Alerts Description No Known Drug Allergies Medications Active Medications SIG Qnty Indications Ordering Provide r Date Prednisone 20mg Tablets 1 tabs twice a day x 5 days 10tabs J20.9 Lui Gar JR., M.D. 01/2020 Ibuprofen Unknown Immunizations Description No Information Available Vital Signs Date Vital Result Comment 06/08/2020 11:00am BP Systolic 118 mmHg BP Diastolic 84 mmHg Heart Rate 72 /min Respiratory Rate 18 /min O2 % BldC Oximetry 99 % Body Temperature 98.4 F Weight 190.00 lb Pain Level 8 Results Description No Information Available Procedures Description No Information Available Medical Devices Description No Information Available Encounters Type Date Location Provider Dx Diagnosis Office Visit 06/08/2020 10:45a Main Office ALEENA Flores J20.9 Acute bronchitis, unspecified Z20.828 Contact w and exposure to ot h viral communicable diseases Assessments Date Code Description Provider 06/08/2020 J20.9 Acute bronchitis, unspecified ALEENA Hobbs 06/08/2020 Z20.828 Contact with and (zabala spected) exposure to other viral communicable diseases ALEENA Flores Plan of Treatment 06/08/2020 - ALEENA Flores* J20.9 Acute bronchitis, unspecified* New Medication:* Prednisone 20 mg - 1 tabs twice a day x 5 days * Comments:* prednisone oral, discussed side effects, rest, fluids, steam, vit c, 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
--- OUTSIDE RECORDS SUMMARY | 2020-08-04 17:35 | CCD | Continuity of Care Document ---
Author Author Sixto VILLANUEVA Organization Unknown Address [address] [place] [phone] Phone [phone] Care Team Providers Care Human Resources Operations Director Name Role Phone Matias Carrasco MD AUTM Unavailable [facility] AUTM [phone] [employer] AUTM [phone] Problems Description No Information Available Social History [...] Status Appt Date Cesar Whatley PA Created [facility] [address] [place] [id number] [phone]
--- OUTSIDE RECORDS SUMMARY | 2020-08-04 18:11 | CCD ---
Author Author [facility] Organization [facility] Address Unknown Phone Unavailable Care Team Providers Care Development Educator Name Role Phone Giuliano DOUGLASS MD Unavailable [...] Unavailable VanTammy lazar PA Unavailable Unavailable VanTammy lzaar PA Unavailable Unavailable VanTammy PA Unavailable Unavailable [...] is protected by Article 27-F of the [facility] Public Health law. If you continue you may have access to information: Regarding HIV / AIDS; Provided by facilities licensed or operated by the [facility] Office of Mental Health; or Provided by the [facility] Office for People With Developmental Disabilities. If such information is present, then the following [facility] mandated warning applies: This information has been [...] law may result in a fine or fpc sentence or both. A general authorization for the release of medical or other information is NOT sufficient authorization for further disc losure. Allergies and Adverse Reactions Type Description Substance Reaction Status Data Source(s ) Drug Class NO KNOWN ALLERGIES NO KNOWN ALLERGIES [facility] Encounters Encounter Providers Location Date Indications Data Source(s ) Outpatient Attender: Porsha arellano 06/08/2020 09:45:00 AM EST [facility] ([facility]) Outpatient Attender: BRAVO DOUGLASS MD 03/31/2020 12:00:00 AM [facility] Medications Medication Brand Name Start Date Product Form Dose Route Admi nistrative Instructions Pharmacy Instructions Status Indications Reaction Description Data Source(s) Prednisone 20 MG Oral Tablet Prednisone 06/08/2020 12:00:00 AM EST active [facility] ([facility]) Insurance Providers Payer name Policy type / Coverage type Policy ID Covered constitution party ID Covered constitution party's relationship to kay Policy Kay Plan Information [facility] ACTIVE DUTY [id number] SP [id number] Self [id number] [facility] HUMAN [id number] SP [id number] [facility] ACTIVE DUT[employer] [id number] SP [id number] ANSI-Not a Secondary Insurance [id number] ANSI-Not a Secondary Insurance [id number] ANSI-Not a Secondary Insurance [id number] ANSI-Not a Secondary Insurance [id number] [employer] ACTIVE DUTY [id number] SP [id number] ANSI-Not a Secondary Insurance [id number] [facility] [id number] O [id number] U [id number] Self [id number] U [id number] Self [id number] Results ID Date Data Source [id number] 06/08/2020 12:00:00 AM EST [facility] Name Value Range Interpretation Code Description Data Yudy rce(s) Supporting Document(s) SARS coronavirus 2 Ag [facility] This lab was ordered by [facility] and reported by [facility]. Procedure Social History Code Duration Value Status Description Data Source(s ) Smoking 06/08/2020 12:00:00 AM EST Patient has never smoked co mpleted Patient has never smoked [facility] ([facility]) Vital Signs ID Date Data Source UNK Name Value Range Interpretation Code Description Data Source(s) Body weight 190.00 [lb_av] 190.00 [lb_av] [facility] ([facility]) Body temperature 98.4 [degF] 98.4 [degF] [facility] ([facility]) Oxygen saturation in Arterial blood by Pulse oximetry 99 % 99 % [facility] ([facility]) Respiratory rate 18 /min 18 /min [facility] ( [facility]) Heart rate 72 /min 72 /min [facility] ([facility]) Diastolic blood pressure 84 mm[Hg] 84 mm[Hg] [facility] ([facility]) Systolic blood pressure 118 mm[Hg] 118 mm[Hg] [facility] ([facility])
[2020-08-04] MEDS ORDERED: DOXY100C37 PO (18:29)
[2020-08-04 19:28] LABS: CHLAMYDIA DNA AMPLIFICATION NEGATIVE (NEGATIVE); GC DNA AMPLIFICATION NEGATIVE (NEGATIVE)
== END 2020-08-04 18:37 | disposition home or self-care (01) ==
LOC: M ED 17:25
DX: A74.9 Chlamydial infection, unspecified (principal)